=== PATIENT | female | born 1975 | race Caucasian/White ===

== ENCOUNTER 2024-06-26 14:05 | Emergency (ER) | payer MEDICAID, SELFPAY ==
--- NOTE | 2024-06-26 14:12 | XR_ITS ---
Examination: CTA carotids with intravenous contrast CTA brain, head with intravenous contrast. 2-D sagittal, coronal reconstructions. 3-D reconstructions. Exam date and time: June 26, 2024 1430 hrs. Indications: Stroke alert, onset left-sided body weakness today CTDI: vol (mGy) 11.3 DLP: (mGycm) 8 Technique: Multiple CTA axial brain, head carotid images post intravenous contrast injection 75 cc, Isovue-370. 2-D sagittal, coronal reconstructions. 3-D reconstructions, 3-D post processing including vascular maximum intensity projection images. Low dose protocols were performed. One or more of the following dose reduction techniques were used; automated exposure control, adjustment of the mA and/or KV according to patient size, use of iterative reconstruction technique. Findings: No significant common carotid carotid bifurcation or internal carotid artery stenoses Dominant left vertebral artery with no critical stenoses No cerebral large vessel occlusions or thrombus Impression: No significant neck arterial stenoses No cerebral large vessel arterial occlusions or thrombus
--- NOTE | 2024-06-26 14:12 | XR_ITS ---
Examination: CT brain head without contrast. 2-D sagittal coronal reconstructions Date and time of exam:June 26, 2024 1416 hrs. Comparison June 17, 2021 Indications: Stroke alert, onset left-sided body weakness today CTDI: vol (mGy):44.9 DLP: (mGycm):868 Technique: Multiple CT axial sections of the brain have been obtained, 5 mm slice thickness. Contrast has not been administered. 2-D sagittal, coronal reconstructions have been obtained Low dose protocols were performed. One or more of the following dose reduction techniques were used; automated exposure control, adjustment of the mA and/or KV according to patient size, use of iterative reconstruction technique. Findings: Extensive abnormal low density cerebral hemispheres greater on the right side with mass effect, midline shift 6 mm distal left No acute hemorrhage Ventricular enlargement Cranial vault appears intact with right frontal parietal craniotomy defect Impression: Extensive abnormal low density throughout the cerebral hemispheres, greater on the right side, differential would include acute infarcts, neoplastic lesions Recommend brain MR by MRA pre and post contrast follow-up
--- NOTE | 2024-06-26 14:21 | PC.NURSE ---
Pt. in CT.
--- NOTE | 2024-06-26 14:25 | PC.NURSE ---
Dr. Yasmeen Haq on tele monitor, talked with pt.
[2024-06-26 14:40] LABS: Basophils # (Auto) 0.1 Thou/mm3 (0.0-0.2); Basophils % (Auto) 1 % (0-2.5); Eosinophils # (Auto) 0.2 Thou/mm3 (0.0-0.5); Eosinophils % (Auto) 2 % (0-10); Hematocrit 45.2 % (36.0-46.0); Hemoglobin 14.2 g/dL (12.0-16.0); Immature Granulocytes % (Auto) 0 % (0-0); Immature Granulocytes Auto 0.02 Thou/mm3 (0.00-0.00); Lymphocytes % (Auto) 19 % (10-50); Mean Corpuscular HGB Conc 31.4 g/dl (31.0-37.0); Mean Corpuscular Hemoglobin 26.5 pg (25.0-35.0); Mean Corpuscular Volume 84 fL (80-100); Monocytes # (Auto) 0.8 Thou/mm3 (0.0-0.8); Monocytes % (Auto) 8 % (0-12); Neutrophils # (Auto) 7.2 Thou/mm3 (1.8-7.7); Neutrophils % (Auto) 70 % (37-80); Nucleated Red Blood Cell % 0 /100 WBC (0); Platelet Count 327 Thou/mm3 (140-440); RDW Standard Deviation 48.1 fL (36.4-46.3); Red Blood Count 5.36 Miln/mm3 (4.00-5.20); White Blood Count 10.3 Thou/mm3 (3.6-11.0)
--- NOTE | 2024-06-26 14:42 | PC.NURSE ---
Pt. refusing vitals, tearing off blood pressure cuff, stating it hurts take it off. Pt. trying to get off CT table.
[2024-06-26 14:44] VITALS: BMI 46.7
--- NOTE | 2024-06-26 14:48 | PD.TNEURO ---
Tele Neuro Consultation Consultation Date 06/26/24 Consultation Narrative [facility] Patient Name:???Brandi Jernigan Date of :???1975 Identification Number:??? Date of Service:???06/26/2024 14:21:23 Diagnosis:?G93.49 - Encephalopathy Multifactorial Impression: ?49 y/o woman with history of right frontal brain mass and epilepsy presenting with AMS and possible dysarthria. She had difficulty following commands for a full exam, but no clear focal weakness elicited. She did show some hesitancy with following commands on the left however, with a subtle left facial asymmetry which may be baseline judging from the location of her brain mass. Not altogether clear what is happening, perhaps she is post ictal, perhaps worsening of brain mass edema. Has not had an MRI as far as can be gathered, would greatly benefit from one. Sign Out: ? Discussed with Emergency Department Provider Advanced Imaging: Advanced Imaging Deferred because: Stroke not suspected with clinical presentation and exam Metrics: Last Known Well: Unknown Dispatch Time: 06/26/2024 14:21:23 Arrival Time: 06/26/2024 14:05:00 Initial Response Time: 06/26/2024 14:24:51Symptoms: AMS. Initial patient interaction: 06/26/2024 14:27:45 NIHSS Assessment Completed: 06/26/2024 14:31:33Patient is not a candidate for Thrombolytic. Thrombolytic Medical Decision: 06/26/2024 14:31:35Patient was not deemed candidate for Thrombolytic because of following reasons: History of previous intracranial hemorrhage, intracranial neoplasm . I personally Reviewed the CT Head and it Showed known right frontal mass with edema. Primary Provider Notified of Diagnostic Impression and Management Plan on: 06/26/2024 14:36:47 History of Present Illness:Patient is a 49 year old Female. Patient was brought by private transportation with symptoms of AMS. 49 y/o woman with history of right frontal mass, epilepsy presenting with AMS. Lives at a nursing facility where staff noted that patient was slurring her words. EMS called but patient refused to be transported. Family went and got her, brought her to the ED for evaluation. Best LKN obtained by staff is 4 days ago. ED physician noted that patient was unsteady upon exiting the car and not moving her left side as well. Patient states that she has had taken any keppra for nearly 3 days because she ran out. Unclear if she seized recently. She is not aware of her previous diagnosis of intracranial neoplasm or noted SAH. Has signed out AMA multiple times. Medications: No Anticoagulant use? No Antiplatelet use Reviewed EMR for current medications Allergies:? Reviewed Social History: Unable To Obtain Due To Patient Status :?Patient Is Confused Family History: There is no family history of premature cerebrovascular disease pertinent to this consultation ROS : 14 Points Review of Systems was performed and was negative except mentioned in HPI. Past Surgical History: There Is No Surgical History Contributory To Today?s Visit Examination: 1A: Level of Consciousness - Alert; keenly responsive?+ 0 1B: Ask Month and Age - Could Not Answer Either Question Correctly?+ 2 1C: Blink Eyes & Squeeze Hands - Performs Both Tasks?+ 0 2: Test Horizontal Extraocular Movements - Normal?+ 0 3: Test Visual Grey - No Visual Loss?+ 0 4: Test Facial Palsy (Use Grimace if Obtunded) - Minor paralysis (flat nasolabial fold, smile asymmetry)?+ 1 5A: Test Left Arm Motor Drift - No Drift for 10 Seconds?+ 0 5B: Test Right Arm Motor Drift - No Drift for 10 Seconds?+ 0 6A: Test Left Leg Motor Drift - No Drift for 5 Seconds?+ 0 6B: Test Right Leg Motor Drift - No Drift for 5 Seconds?+ 0 7: Test Limb Ataxia (FNF/Heel-Ely) - Does Not Understand?+ 0 8: Test Sensation - Normal; No sensory loss?+ 0 9: Test Language/Aphasia - Normal; No aphasia?+ 0 10: Test Dysarthria - Normal?+ 0 11: Test Extinction/Inattention - No abnormality?+ 0 NIHSS Score:?3 Pre-Morbid Modified Ceci Scale:Unable to assess Spoke with :?Dr. Iglesias This consult was conducted in real time using interactive audio and video technology. Patient was informed of the technology being used for this visit and agreed to proceed. Patient located in hospital and provider located at home/office setting. Patient is being evaluated for possible acute neurologic impairment and high probability of imminent or life-threatening deterioration. I spent total of 25 minutes providing care to this patient, including time for face to face visit via telemedicine, review of medical records, imaging studies and discussion of findings with providers, the patient and/or family. Dr Jaylyn Haq [facility] For Inpatient follow-up with [facility] physician please call [facility] at . As we are not an outpatient service for any post hospital discharge needs please contact the hospital for assistance. If you have any questions for the [facility] physicians or need to reconsult for clinical or diagnostic changes please contact us via [facility] at .
[2024-06-26 14:53] VITALS: PULSE 81; RESP 20; TEMP 37.1; O2SAT 95
--- NOTE | 2024-06-26 14:55 | PC.NURSE ---
Pt.'s sister in law Debbie Jernigan [phone], here stating that 1 year ago pt. was homeless doing drugs and living on the streets, pt. was found down and brought here, Debbie states at that time pt. had a stroke and now lives in [facility], Pt. states no I don't. Pt. states that she lives in a home with her and kids [facility]. Debbie states that her and kids have nothing to do with her.
--- NOTE | 2024-06-26 14:57 | PC.NURSE ---
Pt. pulling tele monitor off and stating she's going home, Dr. Iglesias is bedside and states to let pt. sign AMA form. Pt. signed AMA form and walked out with Debbie Jernigan her sister in law.
--- NOTE | 2024-06-26 14:58 | EDNOTE_ITS ---
Altered Mental Status RME/HPI General Chief Complaint: Altered Mental Status Stated Complaint: LEFT SIDE WEAKNESS Time Seen by Provider: 06/26/24 14:12 Arrival date/time: 06/26/24 14:05 Limitations: no limitations RME / HPI RME / HPI narrative: 49 year old female with history of seizures and right frontal mass presents to the ED brought in by family from [facility] for evaluation of altered mental status. Family report they last saw the patient normal 4 days ago Saturday. States this morning CT staff noticed the patient had slurred speech and was altered, prompting calling 911. However, when medics arrived patient refused to come via ambulance and instead family were contacted and brought her here. While outside of the ED the patient was refusing to get out of the vehicle. Charge nurse Zoe, rooming house operator Jeannie, and myself were outside speaking with the patient. On my rapid medical screening, patient was noted to have deficits in the left 6th cranial nerve and was staggering to the left when ambulating to the wheelchair of unknown length of time. Patient was agreeable to the work up therefore was registered and [employer] alert was activated at 14:02. Family add the patient was brought in on Saturday for an outpatient MRI which patient was unable to tolerate and did not have performed. Patient reports she has been noncompliant with seizure medications. Patient was well-known to [facility]. I was warned that she will sign out AGAINST MEDICAL ADVICE, which she did after the completion of her CT and CT angiogram. I was not able to convince her to stay Related Data Previous Rx's ?Medication ?Instructions ?Recorded levetiracetam 500 mg tablet 500 mg PO BID #60 tabs 11/11/22 ([place]) Allergies Allergy/AdvReac Type Severity Reaction Status Date / Time No Known Allergies Allergy Verified 04/17/21 07:10 Review of Systems Review of Systems Systems Reviewed: All systems reviewed, normal except as documented Past Medical History Past Medical History NEUROLOGIC: Positive Neurological Disorders, Brain Tumor and Seizures CARDIAC: Positive Hypertension PSYCHO/SOCIAL: Positive Recreational Drug Use Family History FAMILY HISTORY: Negative Family Cardiac Disorders Social History SMOKING STATUS: Former smoker SUBSTANCE USE: does not use ED Exam General Limitations: Present no limitations General appearance: Present alert Head Head exam: Present atraumatic and normocephalic Eye Eye exam: Present normal appearance, PERRL and EOMI ENT ENT exam: Present normal exam, normal oropharynx and mucous membranes moist Neck Neck exam: Present normal inspection, full ROM and trachea midline Chest Chest inspection: Present normal inspection and symmetric chest wall rise Respiratory Respiratory exam: Present normal lung sounds bilaterally Cardiovascular Cardiovascular exam: Present regular rate, normal rhythm and normal heart sounds Abdominal Exam Abdominal exam: Present soft and normal bowel sounds Extremities Exam Extremities exam: Present normal inspection Back Exam Back exam: Present normal inspection and full ROM Neurological Exam Neurological exam: Present alert and other (deficits in the left 6th cranial nerve and was staggering to the left when ambulating to the wheelchair of unknown length of time) Skin Skin exam: Present warm, dry, intact and normal color Course Quality Measures Suspected type of Stroke: Non Acute Last know well: unknown Tenecteplase given: Reason(s) TPA not given: H/O intracranial hemorrhage, neoplasm, AVM, or aneurysm not given stroke Orders Category Date Time Status Bedside Blood Glucose NOW Care 06/26/24 14:12 Active Design Transferrer NOW Care 06/26/24 14:12 Active Continuous Pulse Oximetry NOW Care 06/26/24 14:12 Active EKG (ED ONLY) *Do not use* NOW Care 06/26/24 14:12 Active In and Out Catheter NEEDED Care 06/26/24 14:12 Active Insert IV NOW Care 06/26/24 14:12 Active NIH Stroke Scale now Care 06/26/24 14:12 Active NPO NOW Care 06/26/24 14:12 Active Nurse Swallow Screen x1 Care 06/26/24 14:12 Active Consult to Neurology / Tele-Neurology Routine Cons 06/26/24 14:[address] angio stroke protocol Stat Exams 06/26/24 14:[address] stroke protocol Stat Exams 06/26/24 14:12 Completed EKG (ED Only) Stat Exams 06/26/24 14:12 Ordered CBC Stat Lab 06/26/24 14:34 Completed Comprehensive Metabolic Panel Stat Lab 06/26/24 14:34 Completed Drug Screen,Urine Stat Lab 06/26/24 14:12 Ordered HCG Titer if Positive Stat Lab 06/26/24 14:34 Completed Magnesium Stat Lab 06/26/24 14:34 Completed Partial Thromboplastin Time Stat Lab 06/26/24 14:34 Completed Prothrombin Time with INR Stat Lab 06/26/24 14:34 Completed Troponin I Stat Lab 06/26/24 14:34 Completed Urinalysis Stat Lab 06/26/24 14:12 Ordered Ondansetron Inj [Zofran Inj] Med 06/26/24 14:12 Active 4 mg IV Q4HR PRN Oxygen Delivery NOW RT 06/26/24 14:12 Active Reevaluation(s) Reevaluation #1: RN reports patient is uncooperative ripping her IV, blood pressure cuff, and leads off. Patient at this time choosing to leave against medical advise. The patient states that they are aware of the serious risks as explained, but they continue to wish to leave against medical advice. Time: 14:55 Vital Signs Vital signs: Vital Signs Temperature 98.8 F 06/26/24 14:53 Pulse Rate 81 06/26/24 14:53 Respiratory Rate 20 06/26/24 14:53 Pulse Oximetry (%) 95 06/26/24 14:53 Oxygen Delivery Method Room Air 06/26/24 14:53 Pulse ox is 95% on room air which is adequate. Altered Mental Status MDM Narrative MDM Narrative:: Briseida Jauregui am scribing for and in the presence of Dr. Iglesias. Patient data External records reviewed:: [facility] previous records (I reviewed ED visit on 08/06/2023) Clinical information provided by:: patient and family Social determinants that could affect healthcare access:: housing ([place] resident ) Patient has the following chronic illnesses:: seizures and right frontal mass How is presenting disease/condition affected by chronic disease/condition?: exacerbated by Evaluation data The following diagnostics were reviewed and interpreted by me:: lab results and radiology exam(s) Lab and/or radiology exams considered but not ordered:: None Interpretation Summary: Ordering Physician: Toby Iglesias MD Date of Service: 06/26/24 Procedure(s): CT angio stroke protocol Accession Number(s): [id number] cc: Toby Iglesias MD; Shane Cortes MD~ Examination: CTA carotids with intravenous contrast CTA brain, head with intravenous contrast. 2-D sagittal, coronal reconstructions. 3-D reconstructions. Exam date and time: June 26, 2024 1430 hrs. Indications: Stroke alert, onset left-sided body weakness today CTDI: vol (mGy) 11.3 DLP: (mGycm) 8 Technique: Multiple CTA axial brain, head carotid images post intravenous contrast injection 75 cc, Isovue-370. 2-D sagittal, coronal reconstructions. 3-D reconstructions, 3-D post processing including vascular maximum intensity projection images. Low dose protocols were performed. One or more of the following dose reduction techniques were used; automated exposure control, adjustment of the mA and/or KV according to patient size, use of iterative reconstruction technique. Findings: No significant common carotid carotid bifurcation or internal carotid artery stenoses Dominant left vertebral artery with no critical stenoses No cerebral large vessel occlusions or thrombus Impression: No significant neck arterial stenoses No cerebral large vessel arterial occlusions or thrombus Dictated By: Shane Cortes MD Signed By: <Electronically signed by Shane Cortes MD in OV> 06/26/24 1520 Ordering Physician: Toby Iglesias MD Date of Service: 06/26/24 Procedure(s): CT stroke protocol Accession Number(s): [id number] cc: Toby Iglesias MD; Shane Cortes MD; NO PRIMARY/FAMILY,PHYSICIAN~ Examination: CT brain head without contrast. 2-D sagittal coronal reconstructions Date and time of exam:June 26, 2024 1416 hrs. Comparison June 17, 2021 Indications: Stroke alert, onset left-sided body weakness today CTDI: vol (mGy):44.9 DLP: (mGycm):868 Technique: Multiple CT axial sections of the brain have been obtained, 5 mm slice thickness. Contrast has not been administered. 2-D sagittal, coronal reconstructions have been obtained Low dose protocols were performed. One or more of the following dose reduction techniques were used; automated exposure control, adjustment of the mA and/or KV according to patient size, use of iterative reconstruction technique. Findings: Extensive abnormal low density cerebral hemispheres greater on the right side with mass effect, midline shift 6 mm distal left No acute hemorrhage Ventricular enlargement Cranial vault appears intact with right frontal parietal craniotomy defect Impression: Extensive abnormal low density throughout the cerebral hemispheres, greater on the right side, differential would include acute infarcts, neoplastic lesions Recommend brain MR by MRA pre and post contrast follow-up Dictated By: Shane Cortes MD Signed By: <Electronically signed by Shane Cortes MD in OV> 06/26/24 1610 Medications / Prescriptions Medications or Prescriptions considered but not ordered:: None Medication administrations:: Medication Administration History Ondansetron HCl (Ondansetron Inj 2 Mg/Ml Inj 2 Ml) 4 mg IV Q4HR PRN PRN Reason: NAUSEA OR VOMITING Stop: 07/26/24 14:11 See above Consultations Consultation(s) initiated? (list below): Yes Consultation #1 (Physician, Specialty, Details): I spoke with teleneurologist Dr. Haq. States patient is known to them for signing out AMA. States because of the right frontal mass, patient is not a candidate for tpa. Time: 14:36 Diagnosis Differential diagnosis altered mental status: altered mental status, hypoglycemia, subarachnoid hemorrhage, sepsis and other (CVA, TIA ) Most likely diagnosis given after review of the tests above:: Altered mental status. Seizure disorder. Noncompliance with medications. Left AGAINST MEDICAL ADVICE Admission Indicated Admission indicated?: not indicated Explain why admission is indicated or not indicated:: Patient left AGAINST MEDICAL ADVISE Admission Request Was there a request for admission?: No Disposition Plan Disposition Plan: other (specify) (AMA ) Discharge Plan Plan Patient Disposition: Left Against Medical Advice Patient condition on transfer: Stable Prescriptions/Referrals Prescriptions/Med Rec: No Action levetiracetam [Keppra] 500 mg tablet 500 mg PO BID Qty: 60 0RF Problem List Clinical Impression: Seizure disorder, Non-compliance, Left against medical advice Patient/Caregiver Discharge Instructions Print Language: [place]
[2024-06-26 15:00] LABS: Alanine Aminotransferase 19 U/L (10-49); Albumin, Serum 4.7 gm/dL (3.5-5.0); Albumin/Globulin Ratio 1.2 (1.2-2.2); Alkaline Phosphatase 132 U/L (46-116); Anion Gap 5 (7-16); Aspartate Amino Transferase 19 U/L (0-34); BUN/Creatinine Ratio 12 Ratio (12-20); Bilirubin,Total 0.2 mg/dL (0.3-1.2); Blood Urea Nitrogen 17 mg/dL (9-23); Calcium 9.7 mg/dL (8.3-10.6); Calcium (Corrected) 9.7 mg/dL (8.5-10.1); Carbon Dioxide 26.6 mMol/L (20.0-31.0); Chloride 109 mMol/L (98-107); Creatinine (Component) 1.4 mg/dL (0.6-1.3); Globulin 3.8 gm/dL (2.3-3.5); Glucose 93 mg/dL (74-106); Magnesium 2.2 mg/dL (1.6-2.6); Osmolality,Calculated 282 (275-295); Potassium 4.9 mMol/L (3.4-5.1); Sodium 141 mMol/L (136-145); Total Protein 8.5 gm/dL (5.7-8.2); Troponin I < 0.002 ng/mL (0.0-0.045); eGFR 46 See Note
[2024-06-26 15:16] LABS: HCG Titer if Positive Negative
[2024-06-26 15:19] LABS: Partial Thromboplastin Time 27.9 Seconds (22.0-36.0); Prothrombin Time 11.2 Seconds (9.0-12.2)
== END 2024-06-26 14:58 | disposition left against medical advice (07) ==
PROVIDERS: Emergency Provider Emergency Medicine
DX: G40.909 Epilepsy, unspecified, not intractable, without status epilepticus (principal); Z91.148 Patient's other noncompliance with medication regimen for other reason; R53.1 Weakness; Z53.29 Procedure and treatment not carried out because of patient's decision for other reasons
CPT/HCPCS: 36415; 70450; 70496; 70498; 80053; 80307; 81001; 83735; 84484; 84703; 85025; 85610; 85730; 99284; A4649; Q9967

== ENCOUNTER → 2024-07-15 | Outpatient (CLI) | payer MEDICAID, SELFPAY ==
[2024-06-22 12:44] LABS: HCG Qualitative,Urine Negative
== END | disposition home or self-care (01) ==
PROVIDERS: PCP Hospitalist; Referring Provider Hospitalist; Visit Provider Hospitalist
DX: Z53.29 Procedure and treatment not carried out because of patient's decision for other reasons (principal)
CPT/HCPCS: 81025

== ENCOUNTER 2024-10-09 17:04 | Emergency (ER) | payer MEDICAID, SELFPAY ==
[2024-10-09 17:38] VITALS: BP 110/70; PULSE 87; RESP 18; TEMP 37.1; O2SAT 97; BMI 38.0
--- NOTE | 2024-10-09 17:38 | PD.EDADULT ---
ED General RME/HPI General Chief complaint: Extremity Injury, Lower Stated complaint: RIGHT KNEE PAIN SP FALL Time Seen by Provider: 10/09/24 17:37 Arrival date/time: 10/09/24 17:04 CC: Right knee pain HPI patient fell on landing on her knee, trying to walk away from her assisted care facility. The patient has a past medical history of brain tumor is in assisted care facility and was observed by care provider as she was trying to escape the facility . Patient denies any other symptoms other than pain localized knee and she was observed and did not fall under head or neck only to her knee. Patient is awake alert and oriented nontoxic-appearing not in any acute distress. Localized pain is 2-3 on a 10 scale. Denies any numbness or tingling in her toes. Related Data Previous Rx's ?Medication ?Instructions ?Recorded levetiracetam 500 mg tablet 500 mg PO BID #60 tabs 11/11/22 (Keppra) Allergies Allergy/AdvReac Type Severity Reaction Status Date / Time No Known Allergies Allergy Verified 04/17/21 07:10 Review of Systems Review of Systems Narrative Review of Systems: GEN: No fever, no chills, no weight loss EYES: No discharge, no visual changes, no pain HEENT: No ear pain, no congestion, no sore throat PULM: No shortness of breath, no cough, no congestion CV: No chest pain, no dyspnea on exertion, no palpitations GI: No nausea, no vomiting, no diarrhea, no pain, no constipation : No frequency, no urgency, no dysuria MUSC/SKEL: No joint pain, no back pain SKIN: Knee abrasion no rash PSYCH: No hallucinations, no depression HEME/LYMPH: No easy bleeding or bruising tendencies NEURO: No weakness, no headache Past Medical History Past Medical History NEUROLOGIC: Positive Neurological Disorders, Brain Tumor and Seizures CARDIAC: Positive Hypertension; Negative Cardiac Disorders or Congestive Heart Failure RESPIRATORY: Negative Chronic Obstructive Pulmonary Disease (COPD) or Asthma GASTROINTESTINAL: Negative Gastrointestinal Disorders GENITOURINARY: Negative Genitourinary Disorders or Renal Disease MUSCULOSKELETAL: Negative Musculoskeletal Disorders ENDOCRINE: Negative Endocrine Disorders, Diabetes Mellitus Type 1 or Diabetes Mellitus Type 2 HEMATOLOGIC: Negative Blood Disorders or Sickle Cell Disease PSYCHO/SOCIAL: Positive Recreational Drug Use Family History FAMILY HISTORY: Negative Family Cardiac Disorders Social History SMOKING STATUS: Never smoker SUBSTANCE USE: does not use ED Exam Narrative Physical exam: [General: Obese not in any acute distress Head normocephalic HEENT: Within acceptable limits Neck is supple nontender Chest equal chest rise nontender to palpation Respiratory: Clear to auscultation no wheezes crackles or rubs CV: Rate rhythm is regular no murmurs rubs or clicks Abdomen is distended secondary to body habitus soft nontender no masses positive bowel sounds all 4 quadrants Back: No CVA tenderness no spinous process tenderness from cervical spine thoracic and lumbar spine Skin: Minor skin abrasion to the skin overlying the patella of the right knee. No open laceration, no active bleeding. Otherwise skin is intact no petechiae rash induration ulceration or crepitus Extremities: Right knee full range of motion against resistance and with passive range of motion no pops or clicks no lateral laxity negative anterior drawer. No tenderness with palpation of the patella. Moving all other extremities against resistance cap refill less than 2 seconds neurosensory intact Neuro: Awake alert oriented x3 Glascow coma 15 no focal deficits] Course Quality Measures none [facility] Patient data External records reviewed:: [facility] previous records Clinical information provided by:: patient Social determinants that could affect healthcare access:: none Patient has the following chronic illnesses:: Brain tumor How is presenting disease/condition affected by chronic disease/condition?: uneffected by Evaluation data The following diagnostics were reviewed and interpreted by me:: other (specify) (None) Lab and/or radiology exams considered but not ordered:: None Interpretation Summary: Abrasion to the knee secondary to fall but no obvious deformity and exam is unremarkable of the right knee Medications Medications considered but not ordered:: None Medication administrations:: None Consultations Consultation(s) initiated? (list below): No Diagnosis Differential Diagnosis ED Complaint MDM: Knee fracture patellar fracture knee dislocation Most likely diagnosis given after review of the tests above:: Fall knee abrasion Admission Indicated Admission indicated?: not indicated Explain why admission is indicated or not indicated:: Stable for discharge Admission Request Was there a request for admission?: No Disposition Plan Disposition Plan: Discharge Discharge Attestation Discharge Attestation: The patient and all family members were given an opportunity to ask questions and understood the discharge instructions. Discharge instructions specifically effects, indications for sooner follow up or return to the emergency department, and the expected course of current diagnosis. Patient condition: Stable Medical Decision Making Differential Diagnosis Differential Diagnosis: Knee fracture patellar fracture knee dislocation Discharge Plan Plan Patient Disposition: HOME (Self Care) Patient condition on transfer: Stable Prescriptions/Referrals Prescriptions/Med Rec: No Action levetiracetam [Keppra] 500 mg tablet 500 mg PO BID Qty: 60 0RF Problem List Clinical Impression: Abrasion of knee, Fall Patient/Caregiver Discharge Instructions Education Materials: ED Abrasions Print Language: Mongolian Stand Alone Forms: Ailyn Award Info., Patient Portal Info Letter PA/[employer] OPERATOR Supervising Physician PA/[employer] OPERATOR Supervising Physician: Alonzo Kim ENP
== END 2024-10-09 19:29 | disposition home or self-care (01) ==
PROVIDERS: Emergency Provider Emergency Medicine
DX: S80.211A Abrasion, right knee, initial encounter (principal); W18.30XA Fall on same level, unspecified, initial encounter
CPT/HCPCS: 99283